=== PATIENT | male | born 1970 | race Caucasian/White ===

== ENCOUNTER → 2017-04-09 | Outpatient (CLI) | payer OTHER ==
[~2017-04-09] MED LIST: OPTIRAY 320 IV PRN
--- NOTE | 2017-04-09 07:53 | DIAGNOSTIC IMAGING REPORT ---
ABD/PELVIS IV AND ORAL CONT HISTORY: 46 years-old Male N45.1 [id number] Varicocelerule out torsion acute scrotal pain. Initial exam. COMPARISON: None available. TECHNIQUE: Multiple axial CT images of the abdomen and pelvis were obtained following the intravenous administration of 1 15 mL Optiray 320. Oral contrast was also administered. A dose lowering technique was used consistent with the principals of TERESA. FINDINGS: There is minimal dependent bibasilar atelectasis. No pneumoperitoneum. The imaged inferior cardiac chambers are unremarkable. Gallbladder is contracted. The liver, spleen, pancreas and adrenal glands are unremarkable. There are multiple low attenuating lesions of the bilateral kidneys suggesting cysts, largest which is exophytic involving the posterior aspect of the interpolar left kidney, 3.2 x 2.3 cm. No renal calculi or hydronephrosis. 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 This artifact also obscures the majority of the pelvic structures including the prostate, urinary bladder and rectum. Postsurgical changes are seen within the upper scrotum without focal scrotal or testicular abnormality seen on this study. No fluid collections or mass identified. The abdominal aorta is normal in both course and caliber. No bulky retroperitoneal adenopathy. There is no bowel obstruction or focal bowel wall thickening. The appendix appears normal. Soft tissues are unremarkable. Bones appear intact. IMPRESSION: 1. No acute intra-abdominal or intrapelvic abnormality identified. Normal appendix. 2. Streak artifact from bilateral hip arthroplasty obscures the pelvic structures. No definite scrotal abnormality identified. If of further clinical concern for scrotal or testicular pathology, further evaluation with dedicated testicular ultrasound is recommended. The above report was generated using voice recognition software. It may contain grammatical, syntax or spelling errors. Electronically signed by: El Gonzalez M.D. 04/09/2017 7:51 AM Dictated Date/Time: 04/09/2017 7:44 AM
== END | disposition home or self-care (01) ==
LOC: C.CTS 07:05
PROVIDERS: ATTEND Urology
DX: I86.1 Scrotal varices (principal); N45.1 Epididymitis; Z96.643 Presence of artificial hip joint, bilateral